=== PATIENT | male | born 1950 | race Caucasian/White ===

== ENCOUNTER → 2017-05-03 | Outpatient (CLI) | payer BC ==
[~2017-05-03] MED LIST: ASPCH81 PO; ATOR-26 PO; FENO134C2 PO; LISI20TA55 PO; METO25TA3 PO; MULT-506 PO
--- NOTE | 2017-05-03 08:46 | DIAGNOSTIC IMAGING REPORT ---
CT LUNG SCREENING, LOW DOSE WITH COMPUTER-AIDED DETECTION (CAD) CLINICAL HISTORY: Screening for malignant neoplasm of respiratory organ. Tobacco use. COMPARISON STUDY: Chest CT February 06, 2016. CT DOSE: 97.56 mGy.cm TECHNIQUE: Low-dose helical CT was acquired without intravenous contrast from lung apices to bases and reconstructed at 2.5 mm every 2 mm. CAD was utilized for this study. A dose lowering technique was utilized adhering to the principles of ALARA. FINDINGS: No enlarged axillary, mediastinal or hilar lymph nodes are present. There are median sternotomy wires and postsurgical findings consistent with bypass grafting. The size the heart is normal. There is no pericardial effusion. The central airways are patent. There are no pulmonary nodules. No consolidation is identified to suggest pneumonia. Minimal lingular opacity represents atelectasis. Bony thorax and upper abdomen are unremarkable this unenhanced examination. IMPRESSION: No pulmonary nodules. No suspicious intrathoracic findings. Lung-RADS Category 1. Negative. CAD FINDINGS: Overall Lung RADS Category: 1 Lung RADS Management Recommendation: Continue annual lung cancer screening. Lung RADS Follow Up Date: 2018-05-03 Electronically signed by: Parker Babcock M.D. 05/03/2017 8:45 AM Dictated Date/Time: 05/03/2017 8:33 AM
== END | disposition home or self-care (01) ==
LOC: C.CTS 07:17
PROVIDERS: ATTEND Nurse Practitioner Family
DX: Z12.2 Encounter for screening for malignant neoplasm of respiratory organs (principal); Z72.0 Tobacco use